=== PATIENT | female | born 1955 | race Caucasian/White ===

== ENCOUNTER → 2018-12-11 09:18 | Outpatient (CLI) | payer OTHER, SELFPAY ==
--- NOTE | 2018-12-11 | DI.MRI.S_ITS ---
PROCEDURE: MR LUMBAR SPINE WO CON INDICATIONS: LUMBAGO WITH SCIATICA/PAIN IN RIGHT LEG TECHNIQUE: Noncontrast sagittal T1 spin echo and T2 fast echo, sagittal STIR, axial T1 and T2 fast spin echo through the lumbar spine. In cases with scoliosis, additional coronal T2 fast spin echo may be performed. COMPARISON: [facility], , L-SPINE 2-3 VIEWS, 02/06/2017, 10:32. FINDINGS: Image quality: Excellent. Alignment and Curvature: Mild anterolisthesis is seen at the L4-L5 level. Bone Marrow: Marrow is of normal overall signal. No acute vertebral body compression fractures. Spinal Cord: Conus medullaris terminates at the L1 level. Visualized cord demonstrates normal signal and size. Paraspinous Soft Tissues: No paravertebral masses. T12-L1: Normal appearance. L1-L2: Normal appearance. L2-L3: The disc height is well-preserved. Loss of disc signal is seen at this level. Mild generalized disc bulge is seen. Minimal to mild bilateral neural foraminal narrowing is seen. Minimal central canal narrowing is seen. L3-L4: Mild loss of disc height is seen. Loss of disc signal is seen. Moderate disc bulge is seen, with a central disc protrusion. There is mild right-sided and minimal left-sided neural foraminal narrowing seen. Mild central canal narrowing is seen. L4-L5: Mild to moderate loss of disc height and disc signal can be seen. Mild to moderate disc bulge is seen. Moderate facet joint hypertrophy is seen. No significant neural foraminal narrowing is seen. Minimal central canal narrowing is seen. L5-S1: Mild loss of disc height is seen. Loss of disc signal is seen. Along the posterior aspect of the annulus fibrosis, there is an annular fissure seen, as on series 2 image 7. Minimal to mild disc bulge is seen. Mild facet joint hypertrophy is seen. No significant neural foraminal or central canal narrowing can be seen. IMPRESSION: Lower lumbar spine degenerative changes are seen, including an annular fissure at L5-S1. Dictated by: Jeffrey Strickland M.D. on 12/11/2018 at 9:34 Approved by: Jeffrey Strickland M.D. on 12/11/2018 at 9:38
== END ==
PROVIDERS: Family Provider Family Medicine; PCP Family Medicine; Visit Provider Nurse Practitioner Family
DX: M47.26 Other spondylosis with radiculopathy, lumbar region (principal); M79.604 Pain in right leg
CPT/HCPCS: 72148

== ENCOUNTER → 2021-01-29 12:12 | Outpatient (CLI) | payer MEDICARE, SELFPAY ==
--- NOTE | 2021-01-29 12:15 | DI.MG.S_ITS ---
BILATERAL DIGITAL SCREENING MAMMOGRAM 3D/2D WITH CAD: 01/29/2021 CLINICAL: Routine screening. Comparison is made to exams dated: 11/27/2017 mammogram, 10/25/2016 mammogram, and 11/17/2014 mammogram - [facility]. The tissue of both breasts is predominantly fatty. Current study was also evaluated with a Computer Aided Detection (CAD) system. There are benign post operative findings in both breasts. No significant masses, calcifications, or other findings are seen in either breast. There has been no significant interval change. IMPRESSION: BENIGN There is no mammographic evidence of malignancy. A 1 year screening mammogram is recommended. This exam was interpreted at Station ID: [id number]. NOTE: For mammograms, a report in lay terms will be sent to the patient. Approximately 15% of breast malignancies will not be visualized mammographically. In the management of a palpable breast mass, a negative mammogram must not discourage biopsy of a clinically suspicious lesion. Electronically Signed By: Edward rizo/cm:01/29/2021 13:47:03 letter sent: Normal Exam ACR BI-RADS Category 2: Benign Finding(s) 3342F
--- NOTE | 2021-01-29 12:16 | DI.US.S_ITS ---
PROCEDURE: US ABD AORTA ANEURYSM SCREEN INDICATIONS: Encounter for screening for abdominal aortic aneurysm TECHNIQUE: Real time scanning was performed of the aorta and iliac arteries, with image documentation. COMPARISON: None. FINDINGS: Aorta: Proximal aortic diameter measures 1.8 cm. Mid-aorta measures 1.6 cm. Distal aortic diameter is 1.6 cm. Iliac arteries: Right common iliac artery measures 1.2 cm. Left common iliac artery measures 0.9 cm. IMPRESSION: Negative for aneurysm. Dictated by: Jeffrey Strickland M.D. on 01/29/2021 at 12:59 Approved by: Jeffrey Strickland M.D. on 01/29/2021 at 13:00
--- NOTE | 2021-01-29 12:16 | DI.RAD.S_ITS ---
PROCEDURE: XR DEXA AXIAL SKELETON INDICATIONS: Encounter for screening for card COMPARISON: None. FINDINGS: This blank DEXA report has been sent in error by the PACS system. The correct and complete report will be forthcoming in 1-2 days. Thank you for your patience and understanding. Dictated by: Maeve Barba MD, PhD on 01/29/2021 at 16:54 Approved by: Maeve Barba MD, PhD on 01/29/2021 at 16:54
== END ==
PROVIDERS: Family Provider Family Medicine; PCP Family Medicine; Referring Provider Nurse Practitioner Family; Visit Provider Nurse Practitioner Family
DX: Z12.31 Encounter for screening mammogram for malignant neoplasm of breast (principal); Z13.6 Encounter for screening for cardiovascular disorders; Z78.0 Asymptomatic menopausal state; M81.0 Age-related osteoporosis without current pathological fracture; E07.9 Disorder of thyroid, unspecified; Z90.722 Acquired absence of ovaries, bilateral; Z82.62 Family history of osteoporosis
CPT/HCPCS: 76706; 77063; 77067; 77080

== ENCOUNTER 2022-02-28 20:18 | Emergency (ER) | payer MEDICARE, BC, SELFPAY ==
[2022-02-28] VITALS (15 sets, daily range): BP systolic 165–229; BP diastolic 77–153; PULSE 46–69; RESP 20; TEMP 36.6; O2SAT 93–99; BMI 24.7
--- NOTE | 2022-02-28 20:52 | PC.NURSE ---
pt was dx with a dvt 2 wks ago and given blood thinners, today she stepped down and her leg started hurting, pt states it had not been hurting up til now, denies any SOB or other s/s
--- NOTE | 2022-02-28 21:44 | DI.US.S_ITS ---
PROCEDURE: US PERIPH VENOUS LOW EXTREM LT INDICATIONS: Pain/swelling/DVT TECHNIQUE: Real-time imaging, as well as color and pulse Doppler interrogation, were performed of the lower extremity deep veins from the inguinal ligament to the popliteal fossa. COMPARISON: None. FINDINGS: The common femoral, femoral and popliteal veins are normally compressible, and free of intraluminal thrombus. Color and pulse Doppler demonstrate normal phasic intraluminal flow. There is normal augmentation response to distal compression maneuver. IMPRESSION: 1. No evidence of deep venous thrombosis within the left lower extremity. Dictated by: Cortez Hutchins M.D. on 02/28/2022 at 23:26 Approved by: Cortez Hutchins M.D. on 02/28/2022 at 23:28
--- NOTE | 2022-02-28 21:52 | PC.NURSE ---
Addendum entered by Tereza Agee R.N. 02/28/22 23:47: pt reports she had a small clot just below her knee in the calf and another that was in her lower calf above the ankle which was concerning to the doctors. Original Note: pt reports she was diagnosed with a DVT on February 14. she was given a shot and has been taking Eliquis since then. today she woke up with pain in her calf once more, has not had this since the diagnosis. pedal pulse is weaker on the affected (left) side.
--- NOTE | 2022-02-28 22:00 | ED.GENADULT ---
HPI - General Adult General Chief complaint: Hypertension Stated complaint: states blood clot in left leg Time Seen by Provider: 02/28/22 21:44 Source: patient Mode of arrival: Ambulatory History of Present Illness HPI narrative: Patient brought here by her sister. Complaints of left calf pain. Patient diagnosed on [place] at [facility] February 13 with left peroneal DVT. Patient states she had been traveling for long hours in a car the day prior. Patient is on Eliquis since February 13. Today she stepped down and felt pain in her left calf. Denies any chest pain or dyspnea. No prior history of DVTs. Or PE. Denies denies any chest pain or dyspnea. Patient in no distress. Blood pressure noted. Discharge papers from [facility] shows that patient did have systolic blood pressure of 206. No medications were started. Patient denies any previous history of high blood pressure. She did note in past month or so it has been increasing from 150 systolic. Related Data Previous Rx's Medication Instructions Recorded montelukast 10 mg tablet 10 mg PO QDAY #90 tabs 06/06/16 (Singulair) levothyroxine 112 mcg tablet 0.112 mg PO QAM #90 tabs 10/24/16 estradiol 0.01% (0.1 mg/gram) 0 vaginal SEE INSTRUCTIONS ##1 11/14/16 vaginal cream (Estrace) ibuprofen 600 mg tablet 600 mg PO Q6HP PRN #60 tabs 01/29/17 clindamycin phosphate 2 % vaginal 2 % vaginal SEE INSTRUCTIONS ##40 02/26/17 cream nitrofurantoin 100 mg PO BID #10 caps 04/25/17 monohydrate/macrocrystals 100 mg capsule (Macrobid) lisinopril 5 mg tablet 5 mg PO DAILY #14 tabs 03/01/22 Allergies Allergy/AdvReac Type Severity Reaction Status Date / Time Sulfa (Sulfonamide Allergy Unknown HIVES;HAS Unverified 12/17/17 13:01 Antibiotics) TAKEN SINCE OCCURANCE WITH NO REACTION Review of Systems Review of Systems Narrative: GENERAL: Denies chills, fatigue, malaise, fever, sweats. HEENT: Denies sinus pain, ear pain, sore throat RESPIRATORY: Denies dyspnea, cough CARDIOVASCULAR: Denies chest pain, palpitations GASTROINTESTINAL: Denies nausea, vomiting, abdominal pain : Denies dysuria, frequency, hematuria MUSCULOSKELETAL: Positive muscle negative bony pain SKIN: Denies rash, skin lesions NEUROLOGIC: Denies weakness, numbness ROS Unobtainable: All systems reviewed & are unremarkable except as noted in HPI and below Patient History Surgical History Status post breast reduction Status post hysterectomy Family History Father Heart disease Hypertension Mother Cancer Social History Smoking Status: Never smoker Smoking Status: Never smoker Substance Use Type: marijuana Exam Narrative Exam Narrative: GENERAL: in no distress, not toxic not dyspneic HEAD: Normocephalic. EYES: Pupils equal round No scleral icterus. CARDIOVASCULAR: Regular rate and rhythm without murmurs RESPIRATORY: Clear to auscultation. Breath sounds equal bilaterally. No wheezes, rales, or rhonchi. EXTREMITIES: No gross deformities. Left thigh to toes exposed. Foot is warm soft and pink with strong pedal pulse. No palpable cords on the calf. Calves nontender. Light touch at the foot and toes. Skin intact. BACK: No flank tenderness. NEURO: AOx4. SKIN: Warm and dry PSYCH: Not anxious, is cooperative Initial Vital Signs Initial Vital Signs: Vital Signs Temperature 97.8 F 02/28/22 20:25 Pulse Rate 67 02/28/22 20:25 Respiratory Rate 20 02/28/22 20:25 Blood Pressure 227/96 H 02/28/22 20:25 Pulse Oximetry 99 02/28/22 20:25 Oxygen Delivery Method 02/28/22 20:25 Course Course Course Narrative: No new issues during course of stay Orders Ordered: Discontinued Medications Sodium Chloride (Normal Saline 0.9%) 500 mls @ 1,000 mls/hr IV BOLUS ONE Stop: 03/01/22 00:21 Last Infusion: 03/01/22 03:30 Dose: 1,000 mls/hr Documented By: Infusion: 03/01/22 01:31 Dose: 1,000 mls/hr Documented By: Admin: 03/01/22 00:43 Dose: 1,000 mls/hr Documented By: NR Lisinopril (Lisinopril 5 Mg Tablet) 5 mg PO NOW ONE Stop: 02/28/22 22:37 Last Admin: 02/28/22 22:59 Dose: 5 mg Documented By: JANELLE Reevaluation(s) Reevaluation #1: Blood pressure improved 165/77. Pulse 69. Reviewed results with patient at this time no DVT, concern for possible migration of this to the lungs and the CT scan imaging. Patient and sister do understand and agree. Patient has no complaints of dyspnea or chest pain at this time Time: 23:54 Reevaluation #2: Reviewed imaging results with patient and sister. Blood pressure has improved. Return precautions reviewed with them. Prescription for blood pressure medication provided. Time: 01:15 Vital Signs Vital signs: Vital Signs - 8 hr 02/28/22 20:25 02/28/22 20:43 02/28/22 20:50 Temperature 97.8 F Pulse Rate 67 61 Respiratory Rate 20 Blood Pressure 227/96 H Pulse Oximetry 99 93 99 Oxygen Delivery Method Room Air 02/28/22 20:50 02/28/22 21:00 02/28/22 21:01 Temperature Pulse Rate 46 L Respiratory Rate Blood Pressure 203/90 H 215/153 H Pulse Oximetry 99 Oxygen Delivery Method 02/28/22 21:01 02/28/22 21:30 02/28/22 21:50 Temperature Pulse Rate 51 L 63 Respiratory Rate Blood Pressure 229/95 H Pulse Oximetry 99 98 Oxygen Delivery Method 02/28/22 21:50 02/28/22 22:00 02/28/22 22:01 Temperature Pulse Rate 53 L 61 Respiratory Rate Blood Pressure 217/93 H Pulse Oximetry 99 99 Oxygen Delivery Method 02/28/22 22:01 02/28/22 22:59 02/28/22 22:30 Temperature Pulse Rate 58 L 54 L Respiratory Rate Blood Pressure 194/79 H Pulse Oximetry 99 98 Oxygen Delivery Method 02/28/22 22:31 02/28/22 22:31 02/28/22 23:00 Temperature Pulse Rate 57 L 49 L Respiratory Rate Blood Pressure 194/79 H Pulse Oximetry 97 95 Oxygen Delivery Method 02/28/22 23:30 02/28/22 23:42 02/28/22 23:42 Temperature Pulse Rate 57 L 69 Respiratory Rate Blood Pressure 165/77 H Pulse Oximetry 97 97 Oxygen Delivery Method Medical Decision Making Differential Diagnosis Differential Diagnosis: DVT/hypertension Lab Data Result diagrams: 02/28/22 23:59 02/28/22 23:59 Labs: Lab Results 02/28/22 02/28/22 Range/Units 23:59 23:59 WBC 6.0 (4.5-11.0) X10^3/uL RBC 5.35 H (4.0-5.2) X10^6/uL Hgb 15.4 (12.0-16.0) g/dL Hct 46.3 H (36-46) % MCV 86.6 (80-100) fL MCH 28.8 (26-34) PG MCHC 33.3 (30-36) % RDW 13.7 (11.6-14.8) % Plt Count 222 (150-400) X10^3/uL Neut % (Auto) 43.8 L (50-75) % Lymph % (Auto) 43.8 H (25-40) % [place] % (Auto) 7.8 (3-14) % Eos % (Auto) 3.7 (2-4) % Baso % (Auto) 0.9 (0-2) % Neut # (Auto) 2600 (6286-4438) /uL Lymph # (Auto) 2600 (9567-5957) /uL [place] # (Auto) 500 (0-900) /uL Eos # (Auto) 200 (0-450) /uL Baso # (Auto) 100 (0-100) /uL Sodium 140 (137-145) mmol/L Potassium 3.6 (3.4-5.1) mmol/L Chloride 104 (98-107) mmol/L Carbon Dioxide 29 (22-32) mmol/L BUN 13 (7-17) mg/dL Creatinine 0.78 (0.52-1.04) mg/dL Estimated GFR > 60 (>60) mL/min BUN/Creatinine Ratio 16.7 (6-22) Glucose 131 H (80-110) mg/dL Calcium 9.3 (8.4-10.2) mg/dL Total Bilirubin 1.0 (0.2-1.3) mg/dL AST 29 (14-36) IU/L ALT 25 (<35) IU/L Alkaline Phosphatase 66 (38-126) U/L Total Protein 7.4 (6.3-8.2) g/dL Albumin 4.4 (3.5-5.0) g/dL Globulin 3.0 (1.7-4.1) g/dL Albumin/Globulin Ratio 1.5 (1.0-2.8) Imaging Data US - DVT: Radiologist's Impression: [address] [address] Ultrasound Report Signed Patient: May Estrada MR#: [id number] : 1955 Acct:[id number] Age/Sex: 67 / F Date of Service: 02/28/22 Loc: ED Accession Number: [id number] ?? Procedure: US periph venous low extrem lt Ordering Provider: Wayne Davis MD PROCEDURE:? US PERIPH VENOUS LOW EXTREM LT ? INDICATIONS:? Pain/swelling/DVT ? TECHNIQUE:? Real-time imaging, as well as color and pulse Doppler interrogation, were performed of the lower extremity deep veins from the inguinal ligament to the popliteal fossa.? ? COMPARISON:? None. ? FINDINGS:? The common femoral, femoral and popliteal veins are normally compressible, and free of intraluminal thrombus.? Color and pulse Doppler demonstrate normal phasic intraluminal flow.? There is normal augmentation response to distal compression maneuver. ? ? IMPRESSION:? ? 1. No evidence of deep venous thrombosis within the left lower extremity. ? ? Dictated by: Cortez Hutchins M.D. on 02/28/2022 at 23:26 ? ? Approved by: Cortez Hutchins M.D. on 02/28/2022 at 23:28 ? CT scan - chest: Radiologist's Impression: [address] [address] [address] Scan Report Signed Patient: May Estrada MR#: [id number] : 1955 Acct:[id number] Age/Sex: 67 / F Date of Service: 02/28/22 Loc: ED Accession Number: [id number] ?? Procedure: CT angio chest PE protocol Ordering Provider: Wayne Davis MD PROCEDURE:? CT ANGIO CHEST PE PROTOCOL ? INDICATIONS:? Chest pain ? TECHNIQUE:? After the administration of intravenous contrast, 2 mm thick sections acquired from the pulmonary apices to the posterior costophrenic angles.? 3-dimensional maximum intensity projection (MIP) coronal and sagittal reformats were then acquired through the thorax.? For radiation dose reduction, the following was used:? automated exposure control, adjustment of mA and/or kV according to patient size.? ? COMPARISON:? None. ? FINDINGS:? Image quality:? Excellent.? ? Pulmonary arteries:? Pulmonary arteries are normal in size, and demonstrate no intraluminal filling defects to suggest central pulmonary embolism.? ? Lungs and pleura:? There is mild dependent atelectasis bilaterally.? No pleural effusions or pneumothorax.? Central and peripheral airways are patent.? ? Mediastinum:? Heart size is normal, without pericardial effusion.? No mediastinal or hilar adenopathy.? Thoracic aorta is normal in caliber and enhancement.? Esophagus is normal in caliber, without hiatal hernia.? ? Bones and chest wall:? No suspicious bony lesions.? Ribs and thoracic spine appear intact throughout.? Thyroid gland is diminutive in size with a small focus of calcification in the right thyroid lobe measuring up to 0.3 cm. No axillary or supraclavicular adenopathy. ? ? Abdomen:? Visualized upper abdominal solid organs appear normal in the early arterial phase of enhancement.? ? IMPRESSION:? ? 1. No evidence of pulmonary embolism. ? 2. No acute airspace consolidation.? ? ? Dictated by: Coretz Hutchins M.D. on 03/01/2022 at 0:50 ? ? Approved by: Cortez Hutchins M.D. on 03/01/2022 at 0:52 ? MDM Narrative Medical decision making narrative: Appropriate for discharge home. Patient not toxic. Patient is on anticoagulation already for DVT. Low-dose lisinopril started for elevated blood pressure. Return precautions reviewed with her. No blood work indicated this time. Discharge Plan Departure Patient Disposition: Home Clinical Impression: Strain of left calf muscle Instructions: Calf Muscle Strain, DI for High Blood Pressure Activity Restrictions/Additional Instructions: See family doctor next week for re-evaluation you blood pressure. Prescription for blood pressure medication has been provided for you. See family doctor next week regarding whether to continue blood thinning medication. Return if worsening questions or concerns Prescriptions: New lisinopril 5 mg tablet 5 mg PO DAILY Qty: 14 0RF No Action montelukast [Singulair] 10 MG tablet 10 mg PO QDAY Qty: 90 0RF levothyroxine 112 MCG tablet 0.112 mg PO QAM Qty: 90 2RF estradiol [Estrace] 0.01 % cream 0 Vaginal SEE INSTRUCTIONS Qty: 1 11RF ibuprofen 600 MG tablet 600 mg PO Q6HP PRNQty: 60 0RF clindamycin phosphate 2 % cream 2 % Vaginal SEE INSTRUCTIONS Qty: 40 0RF nitrofurantoin monohyd/m-cryst [Macrobid] 100 MG capsule 100 mg PO BID Qty: 10 0RF Referrals: Gopal Welsh MD [Primary Care Provider] - Visit Report Forms: Patient Portal/API
[2022-02-28] MEDS: lisinopriL 5 MG TABLET PO (22:59)
--- NOTE | 2022-02-28 23:52 | DI.CT.S_ITS ---
PROCEDURE: CT ANGIO CHEST PE PROTOCOL INDICATIONS: Chest pain TECHNIQUE: After the administration of intravenous contrast, 2 mm thick sections acquired from the pulmonary apices to the posterior costophrenic angles. 3-dimensional maximum intensity projection (MIP) coronal and sagittal reformats were then acquired through the thorax. For radiation dose reduction, the following was used: automated exposure control, adjustment of mA and/or kV according to patient size. COMPARISON: None. FINDINGS: Image quality: Excellent. Pulmonary arteries: Pulmonary arteries are normal in size, and demonstrate no intraluminal filling defects to suggest central pulmonary embolism. Lungs and pleura: There is mild dependent atelectasis bilaterally. No pleural effusions or pneumothorax. Central and peripheral airways are patent. Mediastinum: Heart size is normal, without pericardial effusion. No mediastinal or hilar adenopathy. Thoracic aorta is normal in caliber and enhancement. Esophagus is normal in caliber, without hiatal hernia. Bones and chest wall: No suspicious bony lesions. Ribs and thoracic spine appear intact throughout. Thyroid gland is diminutive in size with a small focus of calcification in the right thyroid lobe measuring up to 0.3 cm. No axillary or supraclavicular adenopathy. Abdomen: Visualized upper abdominal solid organs appear normal in the early arterial phase of enhancement. IMPRESSION: 1. No evidence of pulmonary embolism. 2. No acute airspace consolidation. Dictated by: Cortez Hutchins M.D. on 03/01/2022 at 0:50 Approved by: Cortez Hutchins M.D. on 03/01/2022 at 0:52
[2022-03-01] VITALS: PULSE 69; O2SAT 98
[2022-03-01 00:19] LABS: Add Manual Diff / Slide Review NO; Basophils Absolute Auto 100 /uL (0-100); Basophils Percent Auto 0.9 % (0-2); Eosinophils Absolute Auto 200 /uL (0-450); Eosinophils Percent Auto 3.7 % (2-4); Hematocrit 46.3 % (36-46); Hemoglobin 15.4 g/dL (12.0-16.0); Lymphocytes Absolute Auto 2600 /uL (1100-4500); Lymphocytes Percent Auto 43.8 % (25-40); Mean Corpuscular HGB Conc 33.3 % (30-36); Mean Corpuscular Hemoglobin 28.8 PG (26-34); Mean Corpuscular Volume 86.6 fL (80-100); Monocytes Absolute Auto 500 /uL (0-900); Monocytes Percent Auto 7.8 % (3-14); Neutrophils Absolute Auto 2600 /uL (1500-7000); Neutrophils Percent Auto 43.8 % (50-75); Platelet Count 222 X10^3/uL (150-400); Red Blood Cell Count 5.35 X10^6/uL (4.0-5.2); Red Cell Distribution Width 13.7 % (11.6-14.8)
[2022-03-01 00:27] LABS: Alanine Aminotransferase 25 IU/L (<35); Albumin 4.4 g/dL (3.5-5.0); Albumin Globulin Ratio 1.5 (1.0-2.8); Alkaline Phosphatase 66 U/L (38-126); Aspartate Aminotransferase 29 IU/L (14-36); BUN Creatinine Ratio 16.7 (6-22); Blood Urea Nitrogen 13 mg/dL (7-17); Calcium 9.3 mg/dL (8.4-10.2); Carbon Dioxide 29 mmol/L (22-32); Chloride 104 mmol/L (98-107); Estimated Glomerular Filt Rate > 60 mL/min (>60); Glucose 131 mg/dL (80-110); HEMOLYSIS < 15 (0-50); Potassium 3.6 mmol/L (3.4-5.1); Sodium 140 mmol/L (137-145); Total Protein 7.4 g/dL (6.3-8.2)
[2022-03-01 00:30] VITALS: PULSE 64; O2SAT 98
[2022-03-01 00:42] VITALS: BP 195/82; PULSE 60; O2SAT 98
[2022-03-01] MEDS: SODIUM CHLORIDE 0.9% 500 ML 1000 ML IV (00:43)
[2022-03-01 01:00] VITALS: PULSE 56; O2SAT 98
== END 2022-03-01 01:42 | disposition home or self-care (01) ==
PROVIDERS: Emergency Provider Emergency Medicine; Family Provider Family Medicine; PCP Family Medicine
DX: S86.912A Strain of unspecified muscle(s) and tendon(s) at lower leg level, left leg, initial encounter (principal); R07.9 Chest pain, unspecified; I10 Essential (primary) hypertension; Z79.01 Long term (current) use of anticoagulants
CPT/HCPCS: 36415; 71275; 80053; 85025; 93971; 96360; 99284; Q9967

== ENCOUNTER → 2024-02-25 15:11 | Outpatient (CLI) | payer MEDICARE, BC, SELFPAY ==
--- NOTE | 2024-02-25 15:13 | DI.RAD.S_ITS ---
PROCEDURE: XR DEXA AXIAL SKELETON INDICATIONS: Routine screening COMPARISON: [facility], [place], XR DEXA AXIAL SKELETON, 01/29/2021, 12:55. FINDINGS: Lumbar Spine: Bone mineral density 0.750 g/cm2, T score -2.7. Left Hip: Bone mineral density 0.760 g/cm2, T score -1.5. Left Femoral Neck: Bone mineral density 0.603 g/cm2, T score -2.2. Right Hip: Bone mineral density 0.780 g/cm2, T score -1.3. Right Femoral Neck: Bone mineral density 0.641 g/cm2, T score -1.9. Fracture Risk Calculation (when applicable): 10-year fracture risk of a major osteoporotic fracture without prior fracture sosa % and with prior fracture 17%, and of a hip fracture without prior fracture 1.8% and with prior fracture 2.8%. (T score greater or equal to -1.0 to: NORMAL) (T score from -1.1 to -2.4: OSTEOPENIA) (T score less than or equal to -2.5: OSTEOPOROSIS) IMPRESSION: 1. Osteoporosis of the lumbar spine. 2. Osteopenia of the bilateral hips Follow-up guidelines as follows: Osteoporosis: Consider a repeat DEXA and Vertebral Fracture Assessment (VFA) exam in 2 years or sooner if medically necessary, to reassess this patient's status. Osteopenia: Consider a repeat DEXA in 2-3 years to reassess this patient's status, or if there is a new clinical indication. Normal: Consider a repeat DEXA in 5 years or sooner, or if there is a new clinical indication. All treatment decisions require clinical judgment and consideration of individual patient factors, including patient preferences, comorbidities, previous drug use, risk factors not captured in the FRAX model (e.g., frailty, falls, vitamin D deficiency, increased bone turnover, interval significant decline in bone density ) and possible under- or over-estimation of fracture risk by FRAX. In addition, the NOF Guide recommends that FDA-approved medical therapies be considered in postmenopausal women and men age >= 50 years with a: * Hip or vertebral (clinical or morphometric) fracture * T-score of <=-2.5 at the spine or hip * Ten-year fracture probability by FRAX of >= 3% for hip fracture or >=20% for major osteoporotic fracture. People with diagnosed cases of osteoporosis or at high risk for fracture should have regular bone mineral density tests. For patients eligible for Medicare, routine testing is allowed once every 2 years. The testing frequency can be increased to one year for patients who have rapidly progressing disease, those who are receiving or discontinuing medical therapy to restore bone mass, or have additional risk factors. Dictated by: Gracie Valverde M.D. on 02/25/2024 at 17:03 Approved by: Gracie Valverde M.D. on 02/25/2024 at 17:05
--- NOTE | 2024-02-25 15:13 | DI.MG.S_ITS ---
BILATERAL DIGITAL SCREENING MAMMOGRAM 3D/2D WITH CAD: 02/25/2024 CLINICAL: Routine screening. Comparison is made to exams dated: 01/29/2021 mammogram, 11/27/2017 mammogram, and 10/25/2016 mammogram - [facility]. There are scattered areas of fibroglandular density in both breasts (category b / 25%-50% glandular tissue). Current study was also evaluated with a Computer Aided Detection (CAD) system. There are benign post operative findings in both breasts. No significant masses, calcifications, or other findings are seen in either breast. There has been no significant interval change. IMPRESSION: BENIGN There is no mammographic evidence of malignancy. A 1 year screening mammogram is recommended. Based on the Tyrer Cuzick model (a risk assessment model) the patient's lifetime risk is 5.0% and her 10 year risk is 2.9%. According to the ACR, ACS, and NCCN guidelines, an annual breast MRI exam along with mammogram is recommended if the patient's lifetime risk is 20% or greater. This exam was interpreted at Station ID: [id number]. NOTE: For mammograms, a report in lay terms will be sent to the patient. Approximately 15% of breast malignancies will not be visualized mammographically. In the management of a palpable breast mass, a negative mammogram must not discourage biopsy of a clinically suspicious lesion. Electronically Signed By: Varinder polk/cm:02/26/2024 12:30:29 letter sent: Normal Exam ACR BI-RADS Category 2: Benign Finding(s) 3342F
== END ==
PROVIDERS: Family Provider Family Medicine; PCP Family Medicine; Referring Provider Family Medicine; Visit Provider Family Medicine
DX: Z12.31 Encounter for screening mammogram for malignant neoplasm of breast; R92.323 Mammographic fibroglandular density, bilateral breasts; Z13.820 Encounter for screening for osteoporosis; M81.0 Age-related osteoporosis without current pathological fracture
CPT/HCPCS: 77063; 77067; 77080

== ENCOUNTER → 2025-04-05 13:26 | Outpatient (CLI) | payer MEDICARE, BC, SELFPAY ==
--- NOTE | 2025-04-05 13:28 | DI.US.S_ITS ---
PROCEDURE: US THYROID INDICATIONS: HYPOTHYROIDISM TECHNIQUE: Real-time scanning was performed of the thyroid gland, with image documentation. COMPARISON: None. FINDINGS: Thyroid: Right lobe measures 2.6 x 0.9 x 0.6 cm. Left lobe measures 2.7 x 0.8 x 0.6 cm. Isthmus is 0.2 cm thick. Echotexture is homogeneous. 3 mm focus of calcification with shadowing noted in the right lobe of the thyroid. No solid nodules. I 1. Unremarkable ultrasound of the thyroid ACR TI-RADS definitions and recommendations: TI-RADS 1 (benign): 0 points. FNA not needed. TI-RADS 2 (not suspicious): 2 points. FNA not needed. TI-RADS 3: 3 points. * FNA if 2.5 cm or larger, follow up if 1.5 cm or larger (at 1, 3, and 5 years). TI-RADS 4: 4-6 points. * FNA if 1.5 cm or larger, follow up if 1 cm or larger (at 1, 2, 3, and 5 years). TI-RADS 5: 7 points or more. * FNA if 1 cm or larger, follow up if 0.5 cm or larger (every year for 5 years). Dictated by: Jf Liriano M.D. on 04/05/2025 at 17:11 Approved by: Jf Liriano M.D. on 04/05/2025 at 17:12
== END ==
PROVIDERS: Family Provider Family Medicine; Referring Provider Nurse Practitioner; Visit Provider Nurse Practitioner
DX: E03.9 Hypothyroidism, unspecified (principal)
CPT/HCPCS: 76536